=== PATIENT | male | born 1995 | race Caucasian/White ===

== ENCOUNTER 2018-05-04 15:31 | Emergency (ER) | payer BC ==
[~2018-05-04] VITALS: Ht 175.3 cm; Wt 96.3 kg
[~2018-05-04 15:31] MED LIST: NOHOMEMEDS
[2018-05-04 16:28] VITALS: BP 117/65
== END 2018-05-04 16:28 | disposition home or self-care (01) ==
LOC: EME 15:31
PROC: 3E0234Z Introduction of Serum, Toxoid and Vaccine into Muscle, Percutaneous Approach (ICD-10-PCS; principal; 2018-05-04)
DX: S61.411A Laceration without foreign body of right hand, initial encounter (principal); W29.3XXA Contact with powered garden and outdoor hand tools and machinery, initial encounter; Z23 Encounter for immunization; F17.200 Nicotine dependence, unspecified, uncomplicated; Z88.0 Allergy status to penicillin
CPT/HCPCS: 93005; 99281; 99284